=== PATIENT | female | born 1965 | race African-American/Black ===

== ENCOUNTER → 2017-01-11 | Outpatient (CLI) | payer OTHER | LOC: MC.RAD 14:00 | DX: N63.22 Unspecified lump in the left breast, upper inner quadrant (principal) ==

== ENCOUNTER → 2017-01-12 | Outpatient (CLI) | payer OTHER | LOC: MC.RAD 08:00 | DX: N63.20 Unspecified lump in the left breast, unspecified quadrant (principal) ==

== ENCOUNTER 2017-07-27 15:30 | Outpatient (RCR) | payer OTHER, BC ==
[2017-05-09 10:27] VITALS: BP 132/77; PULSE 90; TEMP 98.5
[2017-05-14 15:00] VITALS: BP 130/72; PULSE 76; TEMP 98.6
[2017-05-21 15:51] VITALS: BP 139/83; PULSE 72; TEMP 97.8
[2017-05-28 15:30] VITALS: BP 122/83; PULSE 69; TEMP 98
[2017-06-04 15:30] VITALS: BP 134/83; PULSE 87; TEMP 98.5
[2017-06-11 15:48] VITALS: BP 129/82; PULSE 80; TEMP 98
[2017-06-13 15:47] LABS: MEAN CELL VOLUME 81 fl (80.0-100.0); MEAN CORPUSCULAR HEMOGLOBIN 27 pg (27.0-31.0); MEAN CORPUSCULAR HGB CONC 33 g/dl (33.0-37.0); MEAN PLATELET VOLUME 9.8 fl (7.4-10.4); PLATELET COUNT 284 K/mm3 (130-400); RED BLOOD COUNT 4.53 M/mm3 (4.10-5.30); REDCELL DISTRIBUTION WIDTH-CV 15.6 % (11.5-14.5)
[2017-06-13 15:48] LABS: HEMATOCRIT 36.6 % (37.0-47.0)
[2017-06-13 15:53] LABS: ALBUMIN 3.7 gm/dL (3.5-5.0); BILIRUBIN,TOTAL 0.2 mg/dL (0.0-1.0); CALCIUM 9.6 mg/dL (8.4-10.2); CREATININE, serum 0.77 mg/dL (0.52-1.25); POTASSIUM 3.9 mmol/L (3.4-5.0); TOTAL PROTEIN 7.9 gm/dL (6.4-8.2)
[2017-06-13 16:17] LABS: EOSINOPHIL 1 % (0-4); LYMPHOCYTE 58 % (20.0-51.0); METAMYELOCYTE 1 % (0-0); NEUTROPHILS 37 % (42.0-75.2); PLATELET ESTIMATE NORMAL (NORMAL)
[2017-06-13 16:18] LABS: ANISOCYTOSIS 1+
[2017-06-18 15:38] VITALS: BP 124/72; PULSE 57; TEMP 98.4
[2017-06-25 16:04] VITALS: BP 125/70; PULSE 76; TEMP 98.5
[2017-07-03 16:12] VITALS: BP 103/46; PULSE 78; TEMP 98.4
[2017-07-06 15:59] VITALS: BP 116/58; PULSE 84; TEMP 98.4
[2017-07-06 15:59] LABS: MEAN CELL VOLUME 79 fl (80.0-100.0); MEAN CORPUSCULAR HEMOGLOBIN 27 pg (27.0-31.0); MEAN CORPUSCULAR HGB CONC 34 g/dl (33.0-37.0); MEAN PLATELET VOLUME 9.8 fl (7.4-10.4); PLATELET COUNT 259 K/mm3 (130-400); RED BLOOD COUNT 4.14 M/mm3 (4.10-5.30); REDCELL DISTRIBUTION WIDTH-CV 16.5 % (11.5-14.5)
[2017-07-06 16:01] LABS: HEMATOCRIT 32.8 % (37.0-47.0)
[2017-07-06 16:35] LABS: BAND 3 % (0-10); LYMPHOCYTE 34 % (20.0-51.0); NEUTROPHILS 56 % (42.0-75.2); PLATELET ESTIMATE NORMAL (NORMAL)
[2017-07-06 16:36] LABS: ANISOCYTOSIS 2+; HYPOCHROMIA 2+; MICROCYTOSIS 1+
[2017-07-06 17:59] LABS: ALBUMIN 3.4 gm/dL (3.5-5.0); BILIRUBIN,TOTAL 0.4 mg/dL (0.0-1.0); CREATININE, serum 0.76 mg/dL (0.52-1.25); POTASSIUM 3.8 mmol/L (3.4-5.0); TOTAL PROTEIN 6.4 gm/dL (6.4-8.2)
[2017-07-13 17:10] VITALS: BP 126/5; PULSE 99; TEMP 98.6
[2017-07-20 16:23] VITALS: BP 135/81; PULSE 91; TEMP 98.3
[2017-07-20 16:25] LABS: HEMOGLOBIN 10.2 g/dl (12.5-16.0); MEAN CELL VOLUME 80 fl (80.0-100.0); MEAN CORPUSCULAR HEMOGLOBIN 27 pg (27.0-31.0); MEAN CORPUSCULAR HGB CONC 34 g/dl (33.0-37.0); MEAN PLATELET VOLUME 9.7 fl (7.4-10.4); PLATELET COUNT 242 K/mm3 (130-400); RED BLOOD COUNT 3.77 M/mm3 (4.10-5.30); REDCELL DISTRIBUTION WIDTH-CV 17.3 % (11.5-14.5)
[2017-07-20 16:26] LABS: HEMATOCRIT 30.2 % (37.0-47.0)
[2017-07-20 16:36] LABS: ANISOCYTOSIS 2+; BAND 37 % (0-10); LYMPHOCYTE 15 % (20.0-51.0); METAMYELOCYTE 3 % (0-0); MICROCYTOSIS 1+; MYELOCYTE 1 % (0-0); NEUTROPHILS 40 % (42.0-75.2); NUCLEATED RED BLOOD CELL 1 (0-6); PLATELET ESTIMATE NORMAL (NORMAL); POLYCHROMASIA 1+
[~2017-07-27] VITALS: Ht 167.6 cm; Wt 97.2 kg
[~2017-07-27 15:30] MED LIST: DOXYCYCLINE 10100 MG PO; PERCOCET 325 MG1 TA2 PO; VALIUM 5MG T5 MG/TAB PO
[2017-07-27 16:33] VITALS: BP 127/52; PULSE 96; TEMP 98.4
[2017-07-27 16:40] LABS: HEMOGLOBIN 10.4 g/dl (12.5-16.0); MEAN CELL VOLUME 79 fl (80.0-100.0); MEAN CORPUSCULAR HEMOGLOBIN 27 pg (27.0-31.0); MEAN CORPUSCULAR HGB CONC 34 g/dl (33.0-37.0); MEAN PLATELET VOLUME 9.6 fl (7.4-10.4); PLATELET COUNT 270 K/mm3 (130-400)
[2017-07-27 16:45] LABS: HEMATOCRIT 30.9 % (37.0-47.0)
[2017-07-27 16:57] LABS: ANISOCYTOSIS 2+; BAND 3 % (0-10); HYPOCHROMIA 1+; LYMPHOCYTE 21 % (20.0-51.0); MICROCYTOSIS 1+; MYELOCYTE 1 % (0-0); NEUTROPHILS 68 % (42.0-75.2); PLATELET ESTIMATE NORMAL (NORMAL)
[2017-07-27 17:01] LABS: ALBUMIN 3.3 gm/dL (3.5-5.0); BILIRUBIN,TOTAL 0.3 mg/dL (0.0-1.0); CALCIUM 9.2 mg/dL (8.4-10.2); CREATININE, serum 0.68 mg/dL (0.52-1.25); POTASSIUM 3.4 mmol/L (3.4-5.0); TOTAL PROTEIN 6.4 gm/dL (6.4-8.2)
[2017-08-03 15:50] VITALS: BP 118/48; PULSE 81; TEMP 97.9
== END 2017-08-07 | disposition home or self-care (01) ==
LOC: EUO
PROVIDERS: Internal Medicine Medical Oncology
DX: C50.212 Malignant neoplasm of upper-inner quadrant of left female breast (principal); Z45.2 Encounter for adjustment and management of vascular access device; Z95.828 Presence of other vascular implants and grafts
CPT/HCPCS: C1751; J1644